=== PATIENT | female | born 1985 ===

== ENCOUNTER → 2024-10-24 | Outpatient (CLI) | payer BC ==
[2024-10-26 18:21] LABS: HEPATITIS B SURFACE ANTIGEN Negative (Negative)
== END | disposition home or self-care (01) ==
LOC: LAB 18:33 → LAB SHORT 18:33
PROVIDERS: Family Medicine
DX: Z77.21 Contact with and (suspected) exposure to potentially hazardous body fluids (principal)
CPT/HCPCS: 87340